=== PATIENT | female | born 1985 | race Caucasian/White ===

== ENCOUNTER 2020-09-08 23:08 | Inpatient (IN) | payer BC ==
[~2020-09-08] VITALS: Ht 152.4 cm; Wt 72.1 kg
--- NOTE | 2020-09-08 23:45 | NUR ---
pt seen in room er bed 7. patient bibra from home for gen weaness and bilateral leg pain pt mother at the bedside reports patient has history of hypokalemia. at this time patient able to move bilateral lower extremities. denies any sensaition deficit to ble. patient vs wnl.
--- NOTE | 2020-09-08 23:50 | NUR ---
divya fishman at bedside to perform blood draw.
[2020-09-09 00:01] LABS: BASOPHILS % (AUTO) 0.5 % (0.0-2.0); EOSINOPHILS % (AUTO) 3.1 % (0.0-6.0); HEMATOCRIT 39 % (33-45); HEMOGLOBIN 13.1 g/dL (11.5-14.8); LYMPHOCYTES % (AUTO) 23.7 % (20.0-44.0); MEAN CORPUSCULAR HGB CONC 33 g/dl (31.0-36.0); MEAN CORPUSCULAR VOLUME 92 fL (82-100); MONOCYTES # (AUTO) 0.7 /CMM (0.1-1.30); MONOCYTES % (AUTO) 8.2 % (2.0-12.0); NEUTROPHILS # (AUTO) 5.4 /CMM (1.8-8.9); NEUTROPHILS % (AUTO) 64.5 % (43.0-81.0); PLATELET COUNT (AUTO) 417 /CMM (150-450); RED BLOOD CELL COUNT(AUTO) 4.27 MIL/uL (4.0-5.2); WHITE BLOOD COUNT (AUTO) 8.4 K/uL (4.3-11.0)
[2020-09-09 00:24] LABS: ALBUMIN 3.3 g/dL (3.4-5.0); BILIRUBIN,TOTAL 0.2 mg/dL (0.2-1.0); CALCIUM, SERUM 8.6 mg/dL (8.5-10.1); CREATININE 0.8 mg/dL (0.6-1.3)
[2020-09-09 00:26] LABS: POTASSIUM 1.6 mmol/L (3.5-5.1)
--- NOTE | 2020-09-09 00:26 | NUR ---
POTASSIUM 1.6
[2020-09-09] MEDS ORDERED: POTASSIUM CHLORIDE 20 MEQ TAB.PRT.SR PO ONE ×5 (00:29→06:00)
[2020-09-09] MEDS ORDERED: MAGNESIUM HYDROXIDE 30 ML UDC PO PRN (01:30)
[2020-09-09] MEDS ORDERED: ONDANSETRON HCL/PF 4 MG/2 ML VIAL IVP PRN (01:30)
[2020-09-09] MEDS ORDERED: ACETAMINOPHEN 325 MG TABLET PO PRN (01:30)
[2020-09-09] MEDS ORDERED: MAG HYDROX/AL HYDROX/SIMETH 30 ML UDC PO PRN (01:30)
[2020-09-09] MEDS ORDERED: Z GUARD REMEDY 2 OZ OINT TP PRN (01:30)
[2020-09-09] MEDS ORDERED: HYDROCODONE/APAP 5/325MG TABLET PO PRN (01:30)
--- NOTE | 2020-09-09 02:05 | NUR ---
ATTEMPTED TO GIVE REPORT TO STAFF, STAFF STATES THAT SHE WILL CALL BACK.
[2020-09-09 02:07] LABS: THYROID STIMULATING HORMONE 5.731 uIU/mL (0.358-3.74)
--- NOTE | 2020-09-09 02:28 | NUR ---
MD ROSALES GAVE REPORT TO SHOAIB SAMS FOR ARACELI.
--- NOTE | 2020-09-09 02:36 | NUR ---
PATIENT TAKEN UP TO ASSIGNED ROOM FOR ARACELI.
--- NOTE | 2020-09-09 02:45 | NUR ---
PRINTED CIRCUIT BOARDS STRIPPER ETCHER ADMITTING NOTE RECEIVED REPORT FROM DR. ROSALES. PATIENT TRANSFERRED TO TELE. PATIENT A/OX4; ABLE TO MAKE NEEDS KNOWN. ON ROOM AIR TOLERATING WELL WITH NO SOB. EXTERNAL NANNY CAREGIVER READS SINUS TACHY AT 105. PATIENT DENIES PAIN OR DISCOMFORT AT THIS TIME. PATIENT IS ABLE TO MOVE LEGS AND ARMS ACTIVELY. SKIN IS INTACT. MINOR BRUISING NOTED TO LEFT HIP AND THIGH. LAC #20G; PATENT AND INTACT. COUNTED PATIENT BELONGINGS AND SIGNED PATIENT BELONGINGS LIST. ORIENTED PATIENT TO STAFF, ROOM, AND UNIT. SAFETY MEASURES IN PLACE: BED IN LOWEST LOCKED POSITION, SIDE RAILS UPX2, CALL LIGHT WITHIN EASY REACH, BED ALARMS ON. RECONCILED PATIENT'S HOME MEDICATIONS. WILL CONTINUE PLAN OF CARE.
[2020-09-09 02:55] VITALS: BP 132/83
--- NOTE | 2020-09-09 02:55 | NUR ---
PIANO MACHINE OPERATOR NOTE ONEL (LAB) REPORTED PATIENT'S CRITICAL LAB VALUE. POTASSIUM IS 2.1. POTASSIUM IN TRENDING UP. PATIENT IS NOT IN DISTRESS AT THIS TIME.
[2020-09-09] MEDS ORDERED: [UNRECOGNIZED DRUG - CODE] PO (03:22)
[2020-09-09] MEDS ORDERED: SERT-438 PO (03:22)
[2020-09-09] MEDS ORDERED: ACET250T9 PO (03:22)
[2020-09-09] MEDS ORDERED: BUPR100T6 PO (03:22)
[2020-09-09 03:24] LABS: MAGNESIUM 2.2 mg/dL (1.8-2.4)
[2020-09-09 04:00] VITALS: BP 116/68
--- NOTE | 2020-09-09 06:18 | NUR ---
GAMES MANAGER NOTE - POTASSIUM ADMINISTERED TOTAL OF K-CL 40 MEQ PO DURING SHIFT ORDERED BY RAMAN VICE PRESIDENT PROCESS.
--- NOTE | 2020-09-09 06:23 | NUR ---
STORAGE ENGINEER CLOSING NOTE PATIENT A/OX4; ABLE TO MAKE NEEDS KNOWN. ON ROOM AIR TOLERATING WELL WITH NO SOB. EXTERNAL PROJECT HIRE READS SINUS RHYTHM AT 90'S. PATIENT DENIES PAIN OR DISCOMFORT AT THIS TIME. LAC #20G S/L; PATENT AND INTACT. SAFETY MEASURES IN PLACE: BED IN LOWEST LOCKED POSITION, SIDE RAILS UPX2, CALL LIGHT WITHIN EASY REACH, BED ALARMS ON. WILL ENDORSE PLAN OF CARE TO ONCOMING MORNING RN.
--- NOTE | 2020-09-09 07:36 | NUR ---
AIR EXPORT COORDINATOR OPENING NOTES RECEIVED PATIENT IN BED, ASLEEP. PATIENT ON ROOM AIR; BREATHING EVEN AND UNLABORED, NO SOB NOTED AT THIS TIME. NO S/S OF PAIN SUCH MOANING, FACIAL GRIMACING OR GUARDING. TELE MONITOR WITH A CURRENT READING OF SR 82. IV ACCESS ON LAC G # 20. SL. SAFETY PRECAUTIONS IN PLACE; BED IN LOW POSITION AND LOCKED, RAILS UP X2, CALL LIGHT WITHIN REACH. WILL CONTINUE TO MONITOR PATIENT.
[2020-09-09 08:00] VITALS: BP 113/77
--- NOTE | 2020-09-09 09:27 | NUR ---
RENEWABLE ENERGY PROJECT MANAGER NOTES RECEIVED PATIENT IN BED, AWAKE, EASYTO AROUSE, ABLE TO MAKE NEEDS KNOWN, A/O X4. PATIENT ON ROOM AIR- NO SOB NOTED, BREATHING EVEN AND UNLABORED, NO COMPLAINT OF PAIN. TELE MONITOR WITH A CURRENT READING OF SR 86 INTACT, IV ACCESS ON RAC G # 18 INTACT - NO INFLAMMATION NOTED, NO IRRITATION , SAFETY PRECAUTIONS IN PLACE; BED IN LOW POSITION AND LOCKED, RAILS UP X2, CALL LIGHT WITHIN REACH. WILL CONTINUE TO MONITOR PATIENT.
--- NOTE | 2020-09-09 12:18 | NUR ---
MS ELECTRICAL ACCESSORIES ASSEMBLER NOTES PATIENT DISCHARGED HOME IN MEDICALLY STABLE CONDITION. PATIENT A/O X4, ON ROOM AIR AND ABLE TO MAKE NEEDS KNOWN. ALL DISCHARGE PAPERWORK READY AND PROVIDED TO PATIENT FOR SIGNATURE. TEACHING REGARDING DIAGNOSIS PROVIDED; PATIENT VERBALIZED UNDERSTANDING AND SIGNED THE PAPERS. BELONGINGS ACCOUNTED FOR AND SIGNED WELL. SKIN INTACT. PRIOR TO LEAVING HE UNIV IV ACCESS WAS REMOVED. PATIENT LEFT THE FLOOR AT 1215 ACCOMPANIED BY RN AND MOTHER. PATIENT LEFT THE HOSPITAL IN A PRIVATE CAR.
== END 2020-09-09 12:15 | disposition home or self-care (01) | DRG 93 ==
LOC: ER 23:10 → TELE 09-09 02:11
PROVIDERS: ADMIT Nurse Practitioner Acute Care; ATTEND Nurse Practitioner Acute Care
DX: G72.3 Periodic paralysis (principal); E03.9 Hypothyroidism, unspecified; F41.9 Anxiety disorder, unspecified
CPT/HCPCS: 36415; 80048-TC; 80076-TC; 83735-TC; 84132-TC; 84443-TC; 84703-TC; 85025-TC; 87081-TC; 97116-TC; 97530-TC; C9803; G0378